=== PATIENT | female | born 1980 | race Caucasian/White ===

== ENCOUNTER 2016-10-30 19:22 | Emergency (ER) | payer MEDICARE, OTHER ==
[2016-10-30 19:36] VITALS: O2SAT 100
[2016-10-30 20:38] LABS: BASO % 0.6 % (0.0-2.0); EOS # 0.1 K/uL (0.0-0.7); EOS % 0.9 % (0.0-4.0); HEMATOCRIT 41.7 % (34.0-47.0); LYMPH # 1.4 K/uL (1.0-4.3); LYMPH % 18.9 % (20.0-40.0); MEAN CELL VOLUME 87.5 fL (81.0-99.0); MEAN CORPUSCULAR HGB CONC 33.1 g/dL (33.0-37.0); MEAN PLATELET VOLUME 8.4 fL (7.2-11.7); MONO # 0.5 K/uL (0.0-0.8); MONO % 6.3 % (0.0-10.0); NRBC % 0.1 % (0.0-2.0); RED CELL DISTRIBUTION WIDTH 12.8 % (11.5-14.5); WHITE BLOOD COUNT 7.4 K/uL (4.8-10.8)
--- NOTE | 2016-10-30 20:44 | C.PDOC ---
History Of Present Illness Patient is a 36 year old female who presents to the ER with a complaint of a syncopal episode. Patient states she syncopized at the vet's office when she saw a little blood on her dog. Patient has a history of vasovagal syncope, is currently asymptomatic. Patient is mute/deaf and communicates via a junior oracle dba. Denies any nausea, vomiting or diarrhea. Time Seen by Provider: 10/30/16 19:57 Chief Complaint (Nursing): Syncope History Per: Patient History/Exam Limitations: no limitations Onset/Duration Of Symptoms: Mins Current Symptoms Are (Timing): Gone Activity At Onset Of Symptoms: Standing Past Medical History Reviewed: Historical Data, Nursing Documentation, Vital Signs Vital Signs: Last Vital Signs Temp 98 F 10/30/16 20:54 Pulse 89 10/30/16 20:54 Resp 20 10/30/16 20:54 BP 102/67 10/30/16 20:54 Pulse Ox 100 10/30/16 20:54 - Medical History PMH: Asthma Surgical History: - [facility] Procedures INJECT/INFUSE NEC (04/10/14) PHYSICAL THERAPY NEC (09/15/14) TETANUS TOXOID ADMINIST (03/23/15) Family History: States: Unknown Family Hx - Social History Hx Alcohol Use: No Hx Substance Use: No - Immunization History Hx Tetanus Toxoid Vaccination: No Review Of Systems Constitutional: Negative for: Fever, Chills Cardiovascular: Negative for: Palpitations Respiratory: Negative for: Cough Gastrointestinal: Negative for: Nausea, Vomiting, Abdominal Pain Physical Exam - Physical Exam Appears: Well, Non-toxic Skin: Normal Color, Warm, Dry Head: Atraumatic, Normacephalic Oral Mucosa: Moist Chest: Symmetrical Cardiovascular: Rhythm Regular Respiratory: Normal Breath Sounds, No Rales, No Rhonchi, No Wheezing Gastrointestinal/Abdominal: Soft, No Tenderness Neurological/Psych: Oriented x3, Normal Speech, Normal Cognition ED Course And Treatment - Laboratory Results Result Diagrams: 10/30/16 20:32 10/30/16 20:32 Lab Interpretation: Normal Urine POC: Negative O2 Sat by Pulse Oximetry: 100 (Room air) Pulse Ox Interpretation: Normal Progress Note: EKG ordered. Medical Decision Making Medical Decision Making: fainted when she saw her pet's blood while @ the kennel typical vasovagal, normal labs, neg preg/UA Disposition Doctor Will See Patient In The: Office Counseled Patient/Family Regarding: Studies Performed, Diagnosis - Disposition Referrals: Cyn Harmon MD [Medical Doctor] - Disposition: HOME/ ROUTINE Disposition Time: 20:44 Condition: GOOD Instructions: Syncope (ED) - Clinical Impression Clinical Impression: Vasovagal syncope - Scribe Statement The provider has reviewed the documentation as recorded by the Scribe Sukhdev Bird All medical record entries made by the Javieribe were at my direction and personally dictated by me. I have reviewed the chart and agree that the record accurately reflects my personal performance of the history, physical exam, medical decision making, and the department course for this patient. I have also personally directed, reviewed, and agree with the discharge instructions and disposition.
[2016-10-30 20:46] LABS: CHLORIDE 100 mmol/L (98-107)
[2016-10-30 20:47] LABS: POTASSIUM 3.6 mmol/L (3.6-5.2); SODIUM 141 mmol/L (132-148)
[2016-10-30 20:50] LABS: ALB/GLOB RATIO 1.3 (1.0-2.1); ALKALINE PHOSPHATASE 56 U/L (38-126); ALT/SGPT 21 U/L (9-52); AST/SGOT 26 U/L (14-36); BILIRUBIN,TOTAL 0.5 mg/dL (0.2-1.3); BLOOD UREA NITROGEN 10 mg/dL (7-17); CARBON DIOXIDE 26 mmol/L (22-30); GFR AFRICAN-AMERICAN > 60; GLUCOSE,RANDOM 94 mg/dL (65-105)
[2016-10-30 20:53] LABS: RBC URINE 17 /hpf (0-3); URINE BACTERIA FEW (<OCC); URINE BILIRUBIN NEGATIVE (NEGATIVE); URINE BLOOD 2+ (NEGATIVE); URINE COLOR Yellow (YELLOW); URINE GLUCOSE (UA) NORMAL (Normal); URINE KETONE NEGATIVE (NEGATIVE); URINE PROTEIN 1+ mg/dL (NEGATIVE); URINE UROBILINOGEN NORMAL mg/dL (0.2-1.0); WBC URINE 10 /hpf (0-5)
[2016-10-30 20:55] LABS: URINE LEUKOCYTE ESTERASE TRACE Leu/uL (Negative)
[2016-10-30 21:02] VITALS: BP 102/67; PULSE 89; RESP 20; TEMP 98
--- NOTE | 2016-10-31 14:42 | CARD ---
APPROVED REPORT EKG Measurement Heart [id number] <Conclusion> Normal sinus rhythm Low voltage QRS Borderline ECG
== END 2016-10-30 20:55 | disposition home or self-care (01) ==
LOC: C.ER 19:22
DX: R55 Syncope and collapse (principal)
CPT/HCPCS: 80053; 81001; 84703; 85025; 93005; 99285; G0480